=== PATIENT | male | born 1945 | race Caucasian/White ===

== ENCOUNTER 2017-12-28 03:19 | Inpatient (IN) | payer OTHER ==
[~2017-12-28] VITALS: Ht 177.8 cm; Wt 86.2 kg
[~2017-12-28 03:19] MED LIST: AMLODIPINE BESYL5 M1 PO; ASPIRIN EC81 M1 PO; COZAAR50 M1 PO; VITAMIN B-121000 MC3 PO; VITAMIN D2000 UNI1 PO
--- NOTE | 2017-12-28 11:08 | Admission Core Measures ---
Acute Coronary Syndrome (CM) ACS Core Measures Acute Coronary Syndrome Diagnosis No Congestive Heart Failure (NEW) CHF Core Measures Congestive Heart Failure Diagnosis No Cerebrovascular Accident CVA Core Measures CVA/TIA Diagnosis No Venous Thromboembolism VTE Core Panchito (View Protocol) VTE Risk Factors Surgery No Mechanical VTE Prophylaxis d/t N/A MechProphylax Ordered No VTE Pharm Prophylaxis d/t NA PharmProphylax ordered Problem List As ranked by this Provider includes Assessment & Plan 1. Unilateral primary osteoarthritis, left hip HOME MEDS Home Med List Amlodipine Besylate 5 MG TABLET 1 TAB PO DAILY BP (Reported) Aspirin (Ecotrin*) 81 MG TABLET.DR 1 TAB PO DAILY HEART/BLOOD (Reported) Cholecalciferol (Vitamin D3) (Vitamin D) 2,000 UNIT TABLET 1 TAB PO DAILY SUPPLEMENT (Reported) Cyanocobalamin (Vitamin B-12) 1,000 MCG TABLET 1 TAB PO QSUN SUPPLEMENT ( Reported) Losartan Potassium (Cozaar) 50 MG TABLET 1 TAB PO DAILY BP (Reported)
[2017-12-28] MEDS ORDERED: MS CONTIN15 M3 PO (11:11)
[2017-12-28] MEDS ORDERED: DILAUDID2 M1 PO (11:11)
[2017-12-28] MEDS ORDERED: MIRALAX17 G1 PO (11:11)
[2017-12-28] MEDS ORDERED: ASPIRIN EC81 M1 PO (11:11)
[2017-12-28] MEDS ORDERED: INDOMETHACIN25 M1 PO (11:11)
[2017-12-28] MEDS ORDERED: COLACE100 M1 PO (11:11)
[2017-12-28] MEDS ORDERED: PRILOSEC OTC20 M1 PO (11:11)
--- NOTE | 2017-12-28 11:14 | Patient Discharge Instructions ---
Discharge Instructions General Discharge Information You were seen/treated for: Left hip pain related to unilateral primary osteoarthritis You had these procedures: Left total hip replacement Watch for these problems: Increasing pain despite the use of pain medication Increasing redness, warmth or swelling Drainage of any type from incision Inability to bear weight on operative leg Persistent nausea and vomiting Fever greater than 101.5 degrees Do not soak the wound: Yes No bath, but you may shower: Yes Other wound care: Please keep wound clean and dry. No ointments or lotions of any type on or near incision at any time. No exceptions. Your dressing will be changed by your nurse on the second day after your surgery. Daily dry dressing changes are recommended each day thereafter. Do not soak your wound in a bath or pool at any time until otherwise indicated by your surgeon. You may shower, please dry wound immediately after shower with a clean towel. Special Instructions: Aspirin: You are taking this medication to help prevent blood clot formation. Please take with food to protect your stomach lining. Please take as directed. Constipation: Pain medication can cause constipation. Your surgeon has recommended that you take Colace and miralax each day. You may discontinue this medication if you develop loose stool or diarrhea. If you wish to continue this medication, it is available over the counter. If you are unable to move your bowels after several days, if you are unable to pass gas and are developing bloating, nausea, or vomiting as a result, please contact your doctor. Diet Continue normal diet: Yes Recommended Diet: Regular Activity Full Activity/No Limits: No Activity Self Limited: Yes Pounds, do NOT lift more than: 10 Acute Coronary Syndrome Inclusion Criteria At DC or during hospital stay patient has or had the following: ACS DIAGNOSIS No Discharge Core Measures Meds if any: Prescribed or Continued at Discharge Meds if any: NOT Prescribed or Continued at Discharge Congestive Heart Failure Inclusion Criteria At DC or during hospital stay patient has or had the following: CHF DIAGNOSIS No Discharge Core Measures Meds if any: Prescribed or Continued at Discharge Meds if any: NOT Prescribed or Continued at Discharge Cerebrovascular accident Inclusion Criteria At DC or during hospital stay patient has or had the following: CVA/TIA Diagnosis No Discharge Core Measures Meds if any: Prescribed or Continued at Discharge Meds if any: NOT Prescribed or Continued at Discharge Venous thromboembolism Inclusion Criteria VTE Diagnosis No VTE Type NONE VTE Confirmed by (Test) NONE Discharge Core Measures - Per Current guidelines, there needs to be overlap - treatment for the first 5 days of Warfarin therapy. - If discharged on Warfarin prior to 5 days of - overlap therapy, the patient will need to be - assessed for post discharge needs including - *Post discharge parental anticoagulation - *Warfarin and/or parental anticoagulation education - *Follow up date to check INR post discharge At least 5 days overlap therapy as Inpatient No Meds if any: Prescribed or Continued at Discharge Note: Overlap Therapy is Warfarin and Anticoagulant Meds if any: NOT Prescribed or Continued at Discharge
--- NOTE | 2017-12-28 11:16 | Surgical Discharge Summary ---
Visit Information Visit Dates Admission Date: 12/28/17 Discharge Date: 12/28/17 History of Present Illness Chief Complaint: Left hip pain related to unilateral primary osteoarthritis Surgical History Pertinent Surgical History: non-contributory Review of Systems: See H&P Hospital Course Course Attending Physician: Frederick Veliz MD Primary Care Physician: Nicholas CORONA,[facility] Hospital Course: Patient was admitted to the hospital for an elective total joint replacement. The procedure was tolerated well and patient was transferred to a general surgical floor. Diet was advanced and tolerated. The patient was evaluated and treated by physical therapy. At the time of hospital discharge, the vital signs were stable, neurovascular status was intact, and pain was controlled with the use of oral pain medications. Complications: None Allergies: Coded Allergies: No Known Allergies (12/25/17) Disposition Summary Disposition Principal Diagnosis: Left hip unilateral primary osteoarthritis Additional Diagnosis: None Discharge Disposition: home health services Discharge Instructions General Discharge Information Code Status: Full Code Patient's Diet: Regular, advance as tolerated Patient's Activity: WBAT Follow-Up Instructions/Appts: Follow up with Dr. Veliz in 6 weeks from date of surgery. Please call office to arrange &/or confirm this appointment. Medications at Discharge Discharge Medications: Stop taking the following medications: Aspirin (Ecotrin*) 81 MG TABLET. ORAL DAILY Continue taking these medications: Losartan Potassium (Cozaar) 50 MG TABLET 1 Tablet ORAL DAILY Amlodipine Besylate (Amlodipine Besylate) 5 MG TABLET 1 Tablet ORAL DAILY Cholecalciferol (Vitamin D3) (Vitamin D) 2,000 UNIT TABLET 1 Tablet ORAL DAILY Cyanocobalamin (Vitamin B-12) 1,000 MCG TABLET 1 Tablet ORAL EVERY TUESDAY Start taking the following new medications: Aspirin (Ecotrin*) 81 MG TABLET.DR 1 Tablet ORAL TWICE DAILY Qty = 60 No Refills Docusate Sodium (Colace) 100 MG CAPSULE 1 Capsule ORAL TWICE DAILY Qty = 14 No Refills Instructions: DISCONTINUE USE IF YOU DEVELOP LOOSE STOOL OR DIARRHEA Polyethylene Glycol 3350 (Miralax) 17 GRAM POWD.PACK 1 Packet ORAL DAILY Qty = 7 No Refills Instructions: dissolve in water, DISCONTINUE USE IF YOU DEVELOP LOOSE STOOL OR DIARRHEA Morphine Sulfate (Ms Contin) 15 MG TABLET.ER 1 Tablet ORAL TWICE DAILY Qty = 6 No Refills Indomethacin (Indomethacin) 25 MG CAPSULE 1 Capsule ORAL THREE TIMES DAILY Qty = 30 No Refills Instructions: with food Hydromorphone HCl (Dilaudid) 2 MG TABLET 1-2 Tablet ORAL EVERY 4-6 HOURS NEEDED as needed for PAIN Qty = 36 No Refills Omeprazole Magnesium (Prilosec Otc) 20 MG TABLET.DR 2 Tablet ORAL DAILY Qty = 60 No Refills Copies To: Nicholas CORONA,Jameel Ohara
--- NOTE | 2017-12-28 12:13 | RADIOLOGY REPORT ---
EXAMINATION: XR HIP, LEFT CLINICAL INFORMATION: Status post left hip replacement. COMPARISON: None. TECHNIQUE: Two views of the left hip. FINDINGS: A left total hip replacement is present. The prosthesis appears in good position. Some air is noted in the subcutaneous tissues surrounding this. No fractures or dislocations are seen. No bony destructive lesions are seen. IMPRESSION: Normal appearance of new left hip prosthesis.
[2017-12-28 13:00] VITALS: BP 112/78
--- NOTE | 2017-12-28 14:18 | PN- Orthopedic ---
Subjective Subjective: POST-OP NOTE Reports slight nausea. Eager to try some food. Out of bed ambulating well with PT. No dizziness. No shortness of breath. No chest pains. Due to void this afternoon. Anticipates discharge to home after he is tolerating food and after he voids. Objective Vital Signs and I&Os Vital Signs Date Time Temp Pulse Resp B/P B/P Pulse O2 O2 Flow FiO2 Mean Ox Delivery Rate 12/28 1300 94 Room Air 12/28 1300 97.8 88 18 112/78 94 Room Air Intake & Output 12/28 1600 12/28 0800 12/28 0000 12/27 1600 12/27 0800 12/27 0000 Intake Total Output Total Balance Patient 190 lb 190 lb Weight Weight Reported by Patient Measurement Method Physical Exam: General - alert & oriented x 3. comfortable. out of bed to chair. no acute distress. Lungs - clear bilaterally. no w/r/r. Cardiac - s1s2. reg. Abdomen - soft. nontender. Extremities - warm bilaterally. no c/c/e. left hip dressing c/d/i. no drains. no hematoma. nvi. Current Medications: Current Medications Sig/Debbie Start time Last Medication Dose Route Stop Time Status Admin Acetaminophen 1,000 MG Q6 12/28 1200 AC 12/28 IV 12/29 0601 1324 Acetaminophen 0 .STK-MED ONE 12/28 0741 DC PO Acetaminophen 975 MG ONCE 12/28 0000 DC PO 12/28 2359 Amlodipine Besylate 5 MG DAILY 12/29 09 AC PO Aspirin Buffered 81 MG BID 12/28 2100 AC PO Cefazolin Sodium 2 GM IQ8 12/28 1600 AC N/A 1 UNIT IV 12/29 0029 Cefazolin Sodium 2,000 MG ONCE 12/28 0000 DC IV 12/28 2359 Dextrose/Sodium 1,000 ML .[id number] 12/28 1315 AC 12/28 Chloride IV 1324 Docusate Sodium 100 MG BID 12/28 2100 AC PO Hydromorphone HCl 2 MG Q4P PRN 12/28 1315 AC PO Hydromorphone HCl 4 MG Q4P PRN 12/28 1315 AC PO Indomethacin Sodium 25 MG TID 12/28 1400 AC PO Losartan Potassium 50 MG DAILY 12/29 0900 AC PO Morphine Sulfate 2 MG Q2P PRN 12/28 1315 AC IV Omeprazole 40 MG DAILY AC 12/29 0700 AC PO Ondansetron HCl 4 MG Q6P PRN 12/28 1315 AC IV Oxycodone HCl 0 .STK-MED ONE 12/28 0742 DC PO Oxycodone HCl 10 MG ONCE 12/28 0000 DC PO 12/28 2359 Polyethylene Glycol 17 GM DAILY 12/29 0900 AC PO Promethazine HCl 12.5 MG Q6P PRN 12/28 1315 AC IV 01/04 1059 Assessment/Plan Assessment/Plan This 72 year old male with hx htn, is POD#0 s/p left total hip replacement for primary osteoarthritis to try regular food shortly due to void this afternoon f/u PT eval asa / indomethicin - dvt ppx case specialist to assist with arranging hhs likely d/c home later today with hhx if meets above will d/w Core Measures Venous Thromboembolism VTE Risk Factors Surgery No Mechanical VTE Prophylaxis d/t N/A MechProphylax Ordered No VTE Pharm Prophylaxis d/t NA PharmProphylax ordered
[2017-12-28 15:00] VITALS: BP 120/84
--- NOTE | 2017-12-28 16:34 | Operative Report ---
Operative/Inv Procedure Report Surgery Date: 12/28/17 Name of Procedure: Left total hip replacement Pre-Operative Diagnosis: Primary left hip DJD Post-Operative Diagnosis: Same Estimated Blood Loss: 300 Surgeon/Aerial Applicator Pilot: Keren CORONA,Frederick O[place]iedo Anesthesia: block Operative/Procedure Note Note: Description of Procedure: The patient was taken to the operating room and positively identified. After induction of spinal anesthesia and administration of appropriate pre-operative antibiotics, the patient was positioned supine on the operating room table and all bony prominences were well padded. After performing a surgical timeout, the left lower extremity was prepped and draped in the usual sterile fashion. A direct anterior approach was made to the left hip. The incision was carried sharply through superficial soft tissues to the level of the fascia. Meticulous hemostasis was maintained with Bovie electocautery. The fascia over the tensor fascia marielle muscle was opened sharply and the interval between the TFL and the sartorius was entered bluntly taking care to stay lateral to the lateral femoral cutaneous nerve. Retractors were placed around the femoral neck and the pericapsular fat was identified. The ascending branches of the lateral femoral circumflex vessels were identified and carefully coagulated. The pericapsular fat and anterior capsule were then resected. A napkin ring osteotomy was performed and the femoral head was removed without difficulty. Attention was then turned to the acetabulum. After appropriate placement of retractors, the acetabulum was exposed. Soft tissue was cleaned from the acetabular margin and notch. Overhanging osteophytes were removed and the teardrop was exposed. The acetabulum was then sequentially reamed to accept a 58 mm [place] Tritanium hemispherical solid shell. This was impacted into place in the appropriate position and fitted with a 36 mm Trident X3 zero degree polyethylene insert. Attention was then turned to the femur. After performing the appropriate ligament releases, the proximal femur was exposed. It was then sequentially broached to accept a size 8 Mook secure fit advanced 127 stem. A Dall-Miles cable was placed proximal to the lesser trochanter prophylactically. This was trialed for leg length and stability. The trial component was removed and the final component was impacted into place. The trunnion was carefully cleaned and fit with a 36 mm, -2.5 Biolox delta ceramic femoral head. The hip was reduced and put through a full range of motion and found to be stable. The articular space was then irrigated with sterile saline. The periarticular soft tissues were infilitrated with Marcaine. The fascial layer was closed with interrupted #1 vicryl suture and the skin was re-approximated with interrupted 2 -0 vicryl. The skin was closed with a running 3-0 V-Lock suture. Steri-strips and a sterile dressing were applied. The patient was awakened and taken to the recovery room in satisfactory condition.
== END 2017-12-28 17:45 | disposition home health service (06) | DRG 470 ==
LOC: SDA 03:19 → ENRESERV 11:20 → ENTRNSPT 12:38 → EDTRNSPTSTS 12:47 → 2NB 12:53 → EDTRNSPT 13:13 → CMPTRNSPT 13:13 → ENTRNSPT 17:35 → EDTRNSPTSTS 17:43 → 2NB 17:45 → CMPTRNSPT 17:53
PROC: 0SRB04A Replacement of Left Hip Joint with Ceramic on Polyethylene Synthetic Substitute, Uncemented, Open Approach (ICD-10-PCS; principal; 2017-12-28)
DX: M16.12 Unilateral primary osteoarthritis, left hip (principal); I10 Essential (primary) hypertension; Z96.641 Presence of right artificial hip joint; Z79.82 Long term (current) use of aspirin
CPT/HCPCS: 2NSBP; 73502-LT; 97116-GO; 97161-GP; J0131; J0690; J0735; J1100; J2405; J2550; J7042